=== PATIENT | male | born 1965 | race Caucasian/White ===

== ENCOUNTER → 2021-08-05 | Day surgery (SDC) | payer OTHER ==
[~2021-08-05] MED LIST: ATORVASTATIN CA20 MG PO; BACTROBAN OINT22 GM TOP; IBU800 MG PO; LEVOTHYROXINE125 MCG PO; OMEPRAZOLE20 M1 PO
== END | disposition home or self-care (01) ==
LOC: OR 09:14
DX: M71.121 Other infective bursitis, right elbow (principal); T84.84XA Pain due to internal orthopedic prosthetic devices, implants and grafts, initial encounter; G89.18 Other acute postprocedural pain; E78.5 Hyperlipidemia, unspecified; E03.9 Hypothyroidism, unspecified; K21.9 Gastro-esophageal reflux disease without esophagitis; F17.210 Nicotine dependence, cigarettes, uncomplicated; E66.9 Obesity, unspecified; Z68.30 Body mass index [BMI] 30.0-30.9, adult; Z79.899 Other long term (current) drug therapy
CPT/HCPCS: 73070; 76000; J0690; J1100; J2001; J2250; J2405; J2704; J2795; J7120